=== PATIENT | female | born 1980 | race Caucasian/White ===

== ENCOUNTER 2020-07-18 06:55 | Outpatient (NON) | payer OTHER, SELFPAY ==
[2020-07-18 20:24] LABS: SARS-CoV-2 RNA PCR Negative
== END 2020-07-18 06:56 ==
PROVIDERS: Visit Provider Pediatrics
DX: Z20.828 Contact with and (suspected) exposure to other viral communicable diseases (principal)
CPT/HCPCS: 87635; C9803; U0003

== ENCOUNTER → 2022-04-19 10:01 | Outpatient (CLI) | payer OTHER, SELFPAY ==
--- NOTE | ~2022-04-19 | US_ITS ---
EXAMINATION: US thyroid DATE: 04/19/2022 10:19 INDICATION: Neck mass. Thyroglossal duct cyst. TECHNIQUE: Multiple ultrasound images of the thyroid were obtained. COMPARISON: 08/21/2016 FINDINGS: The right thyroid lobe measures 5.3 x 1.9 x 1.1 cm. The left thyroid lobe measures 5.0 x 1.4 x 1.6 c m. By millimeters wider than tall solid hypoechoic nodule with ill-defined margins and without echog enic foci in the medial left thyroid lobe (TI-RADS 4, moderately suspicious , FNA if >=1.5 cm, annual followup is >=1 cm). There is normal echotexture, echogenicity and vascular flow throughout the thyr oid gland. There is a 3.1 x 1.9 x 1.6 cm complex cystic mass located cephalad to the thyroid extendin g leftward from the midline. Multiple tiny low-level echoes within the cystic component along with javier th thin peripheral septations and some more hypoechoic soft tissue at the periphery of the inferior a spect of the lesion, both with some discernible intravascular flow on color Doppler. There is an merissa cent normal sized cervical lymph node measuring 5 mm in short axis diameter with central fatty hilum. IMPRESSION: 1. 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 Cystic neoplasm however cannot be excluded and would c onsider ultrasound-guided biopsy of the hypoechoic vascular solid component of the lesion. Would also consider contrast-enhanced CT of the neck for further evaluation. 2. No significant change in a 5 mm TI RADS 4 left thyroid nodule which is below size threshold for ei ther biopsy or follow-up. Reviewed, dictated and finalized at location A. IMPRESSION: 1. 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 Cystic ellie plasm however cannot be excluded and would consider ultrasound-guided biopsy of the hypoechoic vascular solid component of the lesion. Would also consider con trast-enhanced CT of the neck for further evaluation. 2. No significant change in a 5 mm TI RADS 4 left thyroid nodule which is below size threshold for either biopsy or follow-up.
== END ==
PROVIDERS: PCP Family Medicine; Visit Provider Family Medicine
DX: R22.1 Localized swelling, mass and lump, neck (principal)
CPT/HCPCS: 76536

== ENCOUNTER → 2022-11-19 10:49 | Outpatient (CLI) | payer OTHER, SELFPAY ==
--- NOTE | ~2022-11-19 | XR_ITS ---
EXAMINATION: XR scoliosis survey DATE: 11/19/2022 11:35 INDICATION: Other idiopathic scoliosis, site unspecified. TECHNIQUE: Anteroposterior and lateral views of the entire spine standing were obtained. COMPARISON: Lumbar spine MRI 11/11/2018 FINDINGS: Right femoral head stands 9 mm higher than the left. There are 12 pairs of ribs. There are 5 nonrib-bearing lumbar segments. There is 21 degrees dextroscoliosis from T9 to L1 by the Kim metho d. There is 24 degrees levoscoliosis from L1 to L5. There is mild chronic anterior wedging of T6 vert ebral body. There is mild thoracic and lumbar spondylosis. IMPRESSION: 1. Right femoral head stands 9 mm higher than the left. 2. 21 degrees dextroscoliosis from T9 to L1 and 24 degrees levoscoliosis from L1 to L5. Reviewed, dictated and finalized at location A. [employer] IMPRESSION: 1. Right femoral head stands 9 mm higher than the left. 2. 21 degrees dextroscoliosis from T9 to L1 and 24 degrees levoscoliosis from L 1 to L5.
== END ==
PROVIDERS: PCP Pediatrics; Visit Provider Pediatrics
DX: Z00.00 Encounter for general adult medical examination without abnormal findings (principal); M41.20 Other idiopathic scoliosis, site unspecified; M25.50 Pain in unspecified joint; F41.9 Anxiety disorder, unspecified; R53.83 Other fatigue; K21.9 Gastro-esophageal reflux disease without esophagitis; D50.9 Iron deficiency anemia, unspecified
CPT/HCPCS: 72082

== ENCOUNTER 2024-08-24 10:33 | Outpatient (CLI) | payer BC, SELFPAY ==
--- NOTE | ~2024-08-24 | US_ITS ---
Limited Abdominal Sonogram: Real-time sonographic imaging of the right upper quadrant was performed. Clinical History: Abdominal pain Findings: The liver appears normal with no evidence of solid mass lesion or bile duct dilatation. 4. 3 cm simple hepatic cyst present. Additional 1.1 cm hepatic cyst present. Main portal vein demonstrat es normal direction of flow. The gallbladder is well distended, and appears normal with no evidence o f gallstone or wall thickening. The common bile duct measures 2 mm. The visualized pancreas, aorta, and IVC are unremarkable. Impression: No significant abnormality seen. Hepatic cysts, as above. Reviewed, dictated and finalized at location . Impression: No significant abnormality seen. Hepatic cysts, as above.
== END 2024-08-24 10:34 | disposition home or self-care (01) ==
PROVIDERS: PCP Pediatrics; Visit Provider Family Medicine
DX: R10.9 Unspecified abdominal pain (principal); R19.7 Diarrhea, unspecified; R53.83 Other fatigue; E55.9 Vitamin D deficiency, unspecified; E53.8 Deficiency of other specified B group vitamins; R76.8 Other specified abnormal immunological findings in serum
CPT/HCPCS: 76705